=== PATIENT | female | born 1935 | race Caucasian/White ===

== ENCOUNTER → 2016-12-27 | Outpatient (CLI) | payer MEDICARE, OTHER ==
[~2016-12-27] MED LIST: CALTRATE 600 WI1 TAB PO; CENTRUM SILVER1 EAC1 PO; COLCRYS0.6 MG PO; CYMBALTA60 MG PO; FISH OIL1 GM PO; FOLIC ACID1 MG PO; PLAQUENIL200 MG PO; PREDNISONE10 MG PO; PROLIA60 MG/1 ML SUBCUT; REQUIP1 MG PO; SINEMET CR 25-11 TAB PO; VITAMIN D3400 UNI1 PO
== END | disposition short-term general hospital (02) ==
LOC: CLCARD 08:15
DX: I25.10 Atherosclerotic heart disease of native coronary artery without angina pectoris (principal); I25.5 Ischemic cardiomyopathy; I10 Essential (primary) hypertension; E78.5 Hyperlipidemia, unspecified; Z95.5 Presence of coronary angioplasty implant and graft; Z79.899 Other long term (current) drug therapy